=== PATIENT | female | born 1995 | race Caucasian/White ===

== ENCOUNTER → 2018-05-15 14:42 | Outpatient (CLI) | payer OTHER, SELFPAY ==
[2015-03-21 19:15] VITALS: BMI 16.8
[2018-05-15 15:51] LABS: Prolactin 14.7 ng/mL
[2018-05-18 12:48] LABS: HPV Reflexed? NOT INDICATED
== END ==
PROVIDERS: Visit Provider Obstetrics & Gynecology
DX: Z12.4 Encounter for screening for malignant neoplasm of cervix (principal); O92.6 Galactorrhea
CPT/HCPCS: 36415; 84146; 88175; G0145

== ENCOUNTER → 2019-11-05 13:18 | Outpatient (CLI) | payer OTHER, SELFPAY ==
[2015-03-21 19:15] VITALS: BMI 16.8
[2019-11-05 16:00] LABS: Progesterone Level 1.12 ng/mL (See Comment)
== END ==
LOC: LAB.FUTURE 13:23 → WOBLAB 12-04 11:45
PROVIDERS: Visit Provider Obstetrics & Gynecology
DX: N92.6 Irregular menstruation, unspecified (principal)
CPT/HCPCS: 36415; 84144

== ENCOUNTER → 2019-12-16 09:48 | Outpatient (CLI) | payer OTHER, SELFPAY ==
[2015-03-21 19:15] VITALS: BMI 16.8
[2019-12-16 10:55] LABS: Progesterone Level 5.18 ng/mL (See Comment)
== END ==
PROVIDERS: Visit Provider Obstetrics & Gynecology
DX: N97.0 Female infertility associated with anovulation (principal)
CPT/HCPCS: 36415; 84144

== ENCOUNTER → 2019-12-18 | Outpatient (CLI) | payer OTHER, SELFPAY ==
[2015-03-21 19:15] VITALS: BMI 16.8
[2019-12-18 17:40] LABS: Thyroid Stim Hormone (TSH) 2.61 uIU/mL (0.358-3.74)
== END | disposition home or self-care (01) ==
LOC: WOBLAB 15:57
PROVIDERS: Visit Provider Obstetrics & Gynecology
DX: N97.0 Female infertility associated with anovulation (principal); Z79.899 Other long term (current) drug therapy
CPT/HCPCS: 36415; 84443

== ENCOUNTER → 2020-01-17 09:21 | Outpatient (CLI) | payer OTHER, SELFPAY ==
[2015-03-21 19:15] VITALS: BMI 16.8
== END ==
PROVIDERS: Visit Provider Obstetrics & Gynecology
DX: N97.0 Female infertility associated with anovulation (principal); Z79.899 Other long term (current) drug therapy
CPT/HCPCS: 36415; 84144

== ENCOUNTER → 2020-02-18 13:35 | Outpatient (CLI) | payer OTHER, SELFPAY ==
[2015-03-21 19:15] VITALS: BMI 16.8
[2020-02-18 14:25] LABS: Progesterone Level 29.34 ng/mL (See Comment)
== END ==
PROVIDERS: Visit Provider Student in an Organized Health Care Education/Training Program
DX: N92.6 Irregular menstruation, unspecified (principal); N97.0 Female infertility associated with anovulation
CPT/HCPCS: 36415; 84144

== ENCOUNTER → 2020-03-16 14:16 | Outpatient (CLI) | payer OTHER, SELFPAY ==
[2015-03-21 19:15] VITALS: BMI 16.8
[2020-03-16 15:47] LABS: Absolute Lymphocyte Count 1.89 X10^3/uL (0.83-4.51); Absolute Neutrophil Count 15.6 X10^3/uL (2.0-7.7); Basophil# 0.06 X10^3/uL; Basophil% 0.3 % (0-1); Eosinophil# 0.06 X10^3/uL; Eosinophils% 0.3 % (0-5); Hematocrit 40.7 % (37-47); Hemoglobin 13.8 g/dL (12.0-15.0); Lymphocyte # 1.89 X10^3/ul (4.0); Lymphocyte % 10.2 % (19-41); Mean Corp Hgb Conc 33.9 g/dL (32-36); Mean Corpuscular Hgb 29.8 pg (27.0-32.0); Mean Corpuscular Volume 87.9 fL (81-99); Mean Platelet Vol. 9.8 fl (6.2-12.0); Monocyte# 0.77 X10^3/uL; Monocyte% 4.2 % (0-10); NRBC Flagged by Analyzer 0 % (0-5); Neutrophil # 15.62 X10^3/uL (2.7-7.7); Neutrophil % 84.5 % (47-70); Platelet Count 425 K/mm3 (150-450); RBC Distribution Width CV 12.7 % (11.6-14.6); RBC Distribution Width SD 41.2 fl (35.1-43.9); Red Blood Count 4.63 M/mm3 (4.2-5.4); White Blood Count 18.5 K/mm3 (4.4-11.0)
[2020-03-17 10:01] LABS: HIV - WCH Non-Reactive (Nonreactive); Hepatitis B Surface Antigen Non-Reactive (Nonreactive); Hepatitis C Antibody Non-Reactive (Nonreactive); Rubella IgG Reactive (Nonreactive)
[2020-03-19 03:06] LABS: Chlamydia By Nucleic Acid AMP Negative (Negative)
[2020-03-19 03:40] LABS: Prenatal RPR NONREACTIVE (NONREACTIVE)
[2020-03-19 12:31] LABS: Gonococcus By Nucleic Acid AMP Negative (Negative)
== END ==
PROVIDERS: Visit Provider Obstetrics & Gynecology
DX: Z34.82 Encounter for supervision of other normal pregnancy, second trimester (principal)
CPT/HCPCS: 36415; 85025; 86703; 86762; 86803; 87086; 87088; 87340; 87491; 87591

== ENCOUNTER → 2020-07-16 09:17 | Outpatient (CLI) | payer OTHER, SELFPAY ==
[2020-07-16 10:11] LABS: Bacteria 0 SEEN /hpf (None Seen); Mucous, Urine 0 SEEN /hpf (<or=2+); Red Blood Cells-Urine 0 SEEN /hpf (0-5); White Blood Cells 0 SEEN /hpf (0-5)
[2020-07-16 10:50] LABS: Hematocrit 34.4 % (37-47); Hemoglobin 11.3 g/dL (12.0-15.0); Mean Corp Hgb Conc 32.8 g/dL (32-36); Mean Corpuscular Hgb 29.9 pg (27.0-32.0); Mean Platelet Vol. 10.4 fl (6.2-12.0); Platelet Count 374 K/mm3 (150-450); RBC Distribution Width CV 13.8 % (11.6-14.6); RBC Distribution Width SD 45.6 fl (35.1-43.9); Red Blood Count 3.78 M/mm3 (4.2-5.4); White Blood Count 14.1 K/mm3 (4.4-11.0)
[2020-07-16 10:52] LABS: Color, Urine Yellow (Yellow); Glucose, Dipstick 250 mg/dl (Normal); Ketone-Dipstick Negative (Negative); Leukocyte Esterase-Dipstick Negative /ul (Negative); Nitrite-Dipstick Negative (Negative); Occult Blood-Urine 10 /ul (Negative); Protein-Dipstick 30 mg/dl (Negative); Urine Bilirubin Dipstick Negative (Negative); Urine Clarity Clear (Clear); Urine Urobilinogen Normal (Normal)
[2020-07-16 10:59] LABS: Squamous Epithelial Cells - UA 0-5 SEEN /hpf (5-10)
[2020-07-16 11:03] LABS: Protein, Urine (Random) 22.3 mg/dL (<11.9); Protein:Creat Ratio 423 mg/g CRE (0-200)
[2020-07-16 11:19] LABS: ALB/GLOB Ratio 0.7 RATIO (0.9-2.4); AST(SGOT) 16 U/L (15-37); Alanine Aminotransfer ALT/SGPT 31 U/L (13-56); Albumin, Serum 2.7 g/dL (3.2-5.0); Alkaline Phosphatase 111 U/L (45-117); Anion Gap 6 (5-15); BUN 4 mg/dL (7-18); BUN/Creat Ratio 6.4 RATIO (10-20); Calcium,Total 9.1 mg/dL (8.5-10.1); Chloride 108 mmol/L (98-107); Creatinine, Serum 0.62 mg/dL (0.55-1.02); EST Glomerular Filtration Rate 122 mL/min (>60); Est Glom Filt Rate - Afr Amer 148 mL/min (>60); Globulin 3.9 g/dL (2.2-4.2); Glucose 163 mg/dL (74-106); Glucose Challenge Gest 1H 50g 163 mg/dL (70-140); LDH 196 U/L (84-246); Potassium 3.3 mmol/L (3.5-5.1); Protein, Total 6.6 g/dL (6.4-8.2); Sodium Level 135 mmol/L (136-145)
== END ==
PROVIDERS: Visit Provider Obstetrics & Gynecology
DX: O30.022 Conjoined twin pregnancy, second trimester (principal); Z3A.00 Weeks of gestation of pregnancy not specified
CPT/HCPCS: 36415; 80053; 81001; 82570; 82950; 83615; 84156; 85027

== ENCOUNTER 2020-07-16 20:30 | Outpatient (CLI) | payer OTHER, SELFPAY ==
[2020-07-16 20:41] VITALS: BMI 29.3
[2020-07-16 20:46] VITALS: TEMP 37.6
[2020-07-16 20:47] VITALS: BP 138/85; PULSE 114; O2SAT 99
[2020-07-16 21:03] VITALS: BP 134/83; PULSE 114
[2020-07-16 21:10] VITALS: BP 139/86; PULSE 113
--- NOTE | 2020-07-16 22:16 | PCM.HP.OB ---
HPI - General HPI Narrative CINTHIA ANN, is a 25 F G1, P0 at 24 weeks and 2 days with Kike Twins with DIOMEDES: 11/04/2019 1 x 8-week ultrasound arrives with elevated blood pressures in the office. Patient asymptomatic. Denies headache, visual changes, chest pain, shortness of breath, nausea vomiting, right upper quadrant pain. Patient states good movement. complicated by di-di twins, Rh- Obstetric history: G1: Current Past medical history: Denies Past surgical history: ET tubes Medications: vitamin, aspirin Allergies: Lubricant Social history: Denies a history of smoking, alcohol use, drug use Family history: Denies a history of DVT or PE Review of systems: Besides above pertinent positives a full review of systems was performed and found to be negative Physical exam: General: Normal-appearing no acute distress HEENT: Normocephalic atraumatic no cervical lymphadenopathy Cardiac/respiratory: No use of accessory muscles, nonlabored breathing Abdomen: Soft, nontender, gravid Extremities: No peripheral edema normal peripheral pulses Psych: Normal affect normal demeanor nonpressured speech NST: Baby A 110s/ moderate variability/ positive accelerations/ negative decelerations baby B 140/moderate variability/positive accelerations/negative decelerations [place]: quiet PFSH Home Medications aspirin 81 mg PO DAILY 07/16/20 [History Last Taken 07/16/20 07:30] prenat.vits,nathan,sba-[id number] 1 tab PO DAILY 07/16/20 [History Last Taken 07/15/20 20:30] Allergy/AdvReac Type Severity Reaction Status Date / Time No Known Allergies Allergy Verified 03/21/15 19:19 Social History Smoking Status: Unknown if ever smoked Vital Signs Vital Signs Vital Signs: 07/16/20 20:46 07/16/20 20:47 07/16/20 21:03 Temperature 99.6 F H Temperature Source Temporal Pulse Rate 114 H 114 H Blood Pressure 138/85 H 134/83 H BP Systolic 138 134 BP Diastolic 85 83 Pulse Ox 99 07/16/20 21:10 Temperature Temperature Source Pulse Rate 113 H Blood Pressure 139/86 H BP Systolic 139 BP Diastolic 86 Pulse Ox Assessment & Plan Assessment/Plan (1) : Status: Acute Code(s): Z34.90 - Encounter for supervision of normal , unspecified, unspecified trimester Qualifiers: Weeks of gestation: 24 weeks Qualified Code(s): Z3A.24 - 24 weeks gestation of Plan: 25-year-old G1, P0 at 24 weeks and 2 days with Kike twins with elevated blood pressures in the office now with normal blood pressures here. Initial HELLP labs within normal limits besides elevated urine protein creatinine ratio. Will monitor blood pressures overnight and will begin obtaining a 24-hour urine protein starting in the morning(based on late hour to start collection now). We will repeat HELLP labs in the morning. Ultrasound today in office with reassuring findings, NST here reassuring for baby A and B. Repeat NST every shift.
[2020-07-17] VITALS (9 sets, daily range): BP systolic 102–146; BP diastolic 56–87; PULSE 76–118; TEMP 36.8–37.4; O2SAT 98–99
[2020-07-17 07:08] LABS: Absolute Lymphocyte Count 1.84 X10^3/uL (0.83-4.51); Absolute Neutrophil Count 11.4 X10^3/uL (2.0-7.7); Basophil# 0.04 X10^3/uL; Basophil% 0.3 % (0-1); Eosinophil# 0.11 X10^3/uL; Eosinophils% 0.8 % (0-5); Hematocrit 34.1 % (37-47); Hemoglobin 11.4 g/dL (12.0-15.0); Lymphocyte # 1.84 X10^3/ul (0.83-4.51); Mean Corp Hgb Conc 33.4 g/dL (32-36); Mean Corpuscular Volume 92.7 fL (81-99); Monocyte# 0.68 X10^3/uL; Monocyte% 4.8 % (0-10); NRBC Flagged by Analyzer 0 % (0-5); Neutrophil # 11.37 X10^3/uL (2.7-7.7); Neutrophil % 80.5 % (47-70); Platelet Count 332 K/mm3 (150-450); RBC Distribution Width CV 13.5 % (11.6-14.6); RBC Distribution Width SD 45.8 fl (35.1-43.9); Red Blood Count 3.68 M/mm3 (4.2-5.4); White Blood Count 14.1 K/mm3 (4.4-11.0)
[2020-07-17 07:36] LABS: ALB/GLOB Ratio 0.7 RATIO (0.9-2.4); AST(SGOT) 16 U/L (15-37); Alanine Aminotransfer ALT/SGPT 31 U/L (13-56); Albumin, Serum 2.8 g/dL (3.2-5.0); Alkaline Phosphatase 111 U/L (45-117); Anion Gap 7 (5-15); BUN 3 mg/dL (7-18); BUN/Creat Ratio 5.8 RATIO (10-20); Chloride 106 mmol/L (98-107); Creatinine, Serum 0.51 mg/dL (0.55-1.02); EST Glomerular Filtration Rate 153 mL/min (>60); Est Glom Filt Rate - Afr Amer 185 mL/min (>60); Estimated Creatinine Clearance 143.08 ml/min; Globulin 3.8 g/dL (2.2-4.2); Glucose 93 mg/dL (74-106); LDH 154 U/L (84-246); Potassium 3.7 mmol/L (3.5-5.1); Protein, Total 6.6 g/dL (6.4-8.2); Sodium Level 136 mmol/L (136-145)
--- NOTE | 2020-07-17 09:06 | PCM.DC ---
Discharge Instructions Outpatient Procedure Reason For Visit: HIGH BLOOD PRESSURE Diet Discharge Diet: No restrictions Activity Discharge Activity: Return to Normal Activity, May Drive and May Shower May resume sexual activity in: No Restrictions Weight Bearing Status: Weight bearing as tolerated Dressing / Incision Call your doctor if your incision/area has: Continuous Slow Oozing, Increased Pain/ Swelling and Foul Smelling Discharge Call your doctor if you observe: Fever of 101 or Higher, Shortness of breath and Chest pain Follow Up Care Please Follow Up With: Nino Hernandes MD When: 1-2 weeks Test Results: Test results from this visit will be discussed in further detail at your follow-up appointment, if applicable. Discharge Plan Admission Reason For Visit: HIGH BLOOD PRESSURE Attending Provider: Nino Hernandes Discharge Orders/Prescriptions Prescriptions: No Action aspirin 81 mg Tablet 81 mg PO DAILY RF: 0 prenat.vits,nathan,hju-fjvl-xljox Tablet 1 tab PO DAILY RF: 0 Disposition Discharge Orders: Discharge Patient (Routine); Ordered 07/17/20 Ordered By: Dr. Nino Hernandes
--- NOTE | 2020-07-17 09:07 | PN.OBGYN_ITS ---
Subjective Subjective: Patient with no overnight complaints. Denies headache, visual changes, chest pain, shortness of breath, nausea vomiting, right upper quadrant pain. Patient states good movement Objective Data Objective Data Vital Signs: Vital Signs Temp Pulse BP Pulse Ox 98.3 F 110 H 146/86 H 98 07/17/20 07:50 07/17/20 07:55 07/17/20 07:54 07/17/20 07:55 Weight: 171 lb 3.2 oz Body Mass Index (BMI) 29.3 Lab / Micro Data Result Diagrams: 07/17/20 06:55 07/17/20 06:55 Labs: Laboratory Results - last 24 hr 07/17/20 07/17/20 06:55 06:55 WBC 14.1 H RBC 3.68 L Hgb 11.4 L Hct 34.1 L MCV 92.7 MCH 31.0 MCHC 33.4 RDW Std Deviation 45.8 H RDW Coeff of Jocelyn 13.5 Plt Count 332 MPV 10.0 Immature Gran % (Auto) 0.600 Neut % (Auto) 80.5 H Lymph % (Auto) 13.0 L [place] % (Auto) 4.8 Eos % (Auto) 0.8 Baso % (Auto) 0.3 Absolute Neuts (auto) 11.4 H Absolute Lymphs (auto) 1.84 Nucleated RBC % 0 Sodium 136 Potassium 3.7 Chloride 106 Carbon Dioxide 23.0 Anion Gap 7 BUN 3 L Creatinine 0.51 L Estim Creat Clear Calc 143.08 Est GFR (MDRD) Af Amer 185 Est GFR (MDRD) Non-Af 153 BUN/Creatinine Ratio 5.8 L Glucose 93 Calcium 9.0 Total Bilirubin 0.30 AST 16 ALT 31 Alkaline Phosphatase 111 Lactate Dehydrogenase 154 Total Protein 6.6 Albumin 2.8 L Globulin 3.8 Albumin/Globulin Ratio 0.7 L Physical Exam Const alert, oriented x3 and no apparent distress HEENT normocephalic and moist oral mucous membranes Head and Scalp: atraumatic Extremity normal to inspection and no clubbing, cyanosis or edema Skin no rashes or lesions noted Psych mental status grossly normal, affect normal and speech normal Assessment & Plan Assessment/Plan (1) : Status: Acute Code(s): Z34.90 - Encounter for supervision of normal , unspecified, unspecified trimester Qualifiers: Weeks of gestation: 24 weeks Qualified Code(s): Z3A.24 - 24 weeks gestation of Plan: Patient at 24 weeks with di-di twins admitted overnight for blood pressure monitoring. Patient remains asymptomatic. Repeat help labs within normal limits. Overall blood pressures within normal limits, x1 mildly elevated blood pressure. Based on these findings all reassuring. Will collect 24-hour urine and discuss at next visit. Patient to take morning and evening at home blood pressures. Blood pressure parameters and signs/symptoms of preeclampsia given. to call if at home blood pressures elevated or becomes symptomatic. Okay to discharge home today with precautions.
[2020-07-18 09:46] LABS: 24HR. UA Prot. Total Volume 2525 mL; Urine Protein (24 Hour) 14.1 mg/dL (<11.9)
== END 2020-07-17 10:10 | disposition home or self-care (01) ==
LOC: WPOUT 20:35 → WP 20:36
PROVIDERS: Visit Provider Obstetrics & Gynecology
DX: O26.892 Other specified pregnancy related conditions, second trimester (principal); R03.0 Elevated blood-pressure reading, without diagnosis of hypertension; Z3A.24 24 weeks gestation of pregnancy
CPT/HCPCS: 36415; 59025; 59050; 80053; 83615; 84156; 85025; 99218; G0378

== ENCOUNTER → 2020-07-21 06:56 | Outpatient (CLI) | payer OTHER, SELFPAY ==
[2020-07-16 20:41] VITALS: BMI 29.3
[2020-07-21 07:35] LABS: Glucose GTT-Gestation. Fasting 92 mg/dL (<105)
[2020-07-21 08:40] LABS: Glucose GTT-Gestational 1 Hr 257 mg/dL (<190)
[2020-07-21 09:30] LABS: Glucose GTT-Gestational 2 Hr 241 mg/dL (<165)
[2020-07-21 11:49] LABS: Glucose GTT-Gestational 3 Hr 80 L (<145)
== END ==
PROVIDERS: PCP Family Medicine; Referring Provider Obstetrics & Gynecology; Visit Provider Obstetrics & Gynecology
DX: O24.912 Unspecified diabetes mellitus in pregnancy, second trimester (principal); Z3A.00 Weeks of gestation of pregnancy not specified
CPT/HCPCS: 36415; 82951; 82952

== ENCOUNTER → 2020-08-14 13:27 | Outpatient (CLI) | payer OTHER, SELFPAY ==
[2020-07-16 20:41] VITALS: BMI 29.3
== END ==
PROVIDERS: PCP Family Medicine; Visit Provider Obstetrics & Gynecology
DX: Z34.83 Encounter for supervision of other normal pregnancy, third trimester (principal)
CPT/HCPCS: 36415; 86850

== ENCOUNTER 2020-09-08 08:30 | Outpatient (CLI) | payer OTHER, SELFPAY ==
[2020-09-08] VITALS (7 sets, daily range): BP systolic 137–151; BP diastolic 79–90; PULSE 97–122; TEMP 37–37.6; O2SAT 92–97; BMI 29.7
[2020-09-08] MEDS: Lactated Ringers 500 ML IV.SOLN. IV (10:00)
[2020-09-08 10:49] LABS: Hematocrit 35.5 % (37-47); Hemoglobin 11.8 g/dL (12.0-15.0); Mean Corp Hgb Conc 33.2 g/dL (32-36); Mean Corpuscular Hgb 29.4 pg (27.0-32.0); Mean Corpuscular Volume 88.3 fL (81-99); Mean Platelet Vol. 11.3 fl (6.2-12.0); Platelet Count 317 K/mm3 (150-450); RBC Distribution Width SD 42.1 fl (35.1-43.9); Red Blood Count 4.02 M/mm3 (4.2-5.4); White Blood Count 12.5 K/mm3 (4.4-11.0)
[2020-09-08] MEDS: Betamethasone/Betamethasone 30 MG/5 ML Vial 12 MG IM (10:58)
[2020-09-08] MEDS: Lactated Ringers 1,000 ML 125 ML IV ×2 (11:00→19:27)
[2020-09-08 11:25] LABS: ALB/GLOB Ratio 0.6 RATIO (0.9-2.4); AST(SGOT) 22 U/L (15-37); Alanine Aminotransfer ALT/SGPT 26 U/L (13-56); Albumin, Serum 2.4 g/dL (3.2-5.0); Alkaline Phosphatase 200 U/L (45-117); Anion Gap 8 (5-15); BUN 6 mg/dL (7-18); BUN/Creat Ratio 8.7 RATIO (10-20); Calcium,Total 8.8 mg/dL (8.5-10.1); Chloride 106 mmol/L (98-107); Creatinine, Serum 0.69 mg/dL (0.55-1.02); EST Glomerular Filtration Rate 109 mL/min (>60); Est Glom Filt Rate - Afr Amer 132 mL/min (>60); Estimated Creatinine Clearance 105.76 ml/min; Glucose 87 mg/dL (74-106); LDH 206 U/L (84-246); Potassium 4.2 mmol/L (3.5-5.1); Protein, Total 6.4 g/dL (6.4-8.2); Sodium Level 136 mmol/L (136-145)
[2020-09-08] MEDS: Terbutaline 1 MG/ML Vial 0.25 MG SC ×2 (11:45→22:18)
[2020-09-08 11:55] LABS: Group B Strep DNA By PCR Negative (Negative); Internal Control PASS; Probe Check PASS; Specimen Processing Control PASS
--- NOTE | 2020-09-08 12:48 | PCM.HP.BLA ---
History and Physical Date of Admission: 09/08/20 Chief complaint: Contractions History of present illness: 25-year-old G1, P0 at 32 weeks and 0 days with di-ditwins with DIOMEDES: 11/03/2020 by LMP confirmed with 8-week ultrasound arrives with contractions since this morning. Denies headache, visual changes, chest pain, shortness of breath, nausea vomiting, right upper quadrant pain. Patient states good movement x2. This is complicated by di-di twins, JOSH without severe features on no medications, GDM A1, Rh-, baby A echogenic bowel noted on initial ultrasound but not seen by MFM Obstetric history: G1: Current Past medical history: JOSH without severe features, GDM A1 Medications: vitamin, aspirin Past surgical history: Tonsils and adenoids Allergies: Lubrication Social history: Denies smoking, alcohol, drug use Family history: Denies history DVT or PE Review of systems: Besides above pertinent positives a full review of systems was performed and found to be negative Physical exam: Blood pressure 146/88 pulse 102 pulse ox 90% on room air General: Normal-appearing no acute distress HEENT: Normocephalic atraumatic no cervical of adenopathy Cardiac/respiratory: No use of accessory muscles, nonlabored breathing Abdomen: Soft, nontender, gravid Pelvic exam: Cervical exam 350/-3 Bedside ultrasound: Baby A vertex baby B breech Extremities: No peripheral edema normal peripheral pulses Psych: Normal affect normal demeanor nonpressured speech Labs: White blood cell count 12.5, hemoglobin 11.8, hematocrit 35.5% platelets 317. Sodium 136 potassium 4.2 creatinine 0.69. AST 22 ALT 26. LDH 206. Assessment plan: 25-year-old G1, P0 at 32 weeks 0 days with di-di twins with labor. Given Celestone at 10:58 PM, given terbutaline at 11:45 AM. To start penicillin for GBS prophylaxis, rapid GBS negative but with labor still needs penicillin prophylaxis. Educated patient on labor/ delivery including but not limited to risks of intubation, need for tertiary NICU, and loss. Patient stated understanding. Educated on Celestone and terbutaline. We will continue to monitor. JOSH without severe features on no medications blood pressure stable labs stable we will continue to monitor.
--- NOTE | 2020-09-08 22:16 | PCM.PN.OB ---
Subjective Subjective Patient feeling contractions more intensely every few minutes. Otherwise asymptomatic Objective Data Objective Data Vital Signs: Vital Signs Temp Pulse BP Pulse Ox 99.6 F H 110 H 139/79 H 97 09/08/20 21:54 09/08/20 21:54 09/08/20 21:54 09/08/20 21:55 Weight: 173 lb Body Mass Index (BMI) 29.7 Intake & Output: Intake and Output for Last 24 Hours 09/06/20 09/07/20 09/08/20 23:59 23:59 23:59 Intake Total 1150.00 / 1150.00 Balance 1150.00 / 1150.00 Lab / Micro Data Result Diagrams: 09/08/20 10:05 09/08/20 10:05 Labs: Laboratory Results - last 24 hr 09/08/20 09/08/20 09/08/20 10:05 10:05 10:05 WBC 12.5 H RBC 4.02 L Hgb 11.8 L Hct 35.5 L MCV 88.3 MCH 29.4 MCHC 33.2 RDW Std Deviation 42.1 RDW Coeff of Jocelyn 13.0 Plt Count 317 MPV 11.3 Sodium 136 Potassium 4.2 Chloride 106 Carbon Dioxide 22.0 Anion Gap 8 BUN 6 L Creatinine 0.69 Estim Creat Clear Calc 105.76 Est GFR (MDRD) Af Amer 132 Est GFR (MDRD) Non-Af 109 BUN/Creatinine Ratio 8.7 L Glucose 87 Calcium 8.8 Total Bilirubin 0.20 AST 22 ALT 26 Alkaline Phosphatase 200 H Lactate Dehydrogenase 206 Total Protein 6.4 Albumin 2.4 L Globulin 4.0 Albumin/Globulin Ratio 0.6 L Group B Strep DNA Specimen Comment Blood Type A NEGATIVE Antibody Screen POSITIVE H Antibody Identification ANTI-D 09/08/20 10:20 WBC RBC Hgb Hct MCV MCH MCHC RDW Std Deviation RDW Coeff of Jocelyn Plt Count MPV Sodium Potassium Chloride Carbon Dioxide Anion Gap BUN Creatinine Estim Creat Clear Calc Est GFR (MDRD) Af Amer Est GFR (MDRD) Non-Af BUN/Creatinine Ratio Glucose Calcium Total Bilirubin AST ALT Alkaline Phosphatase Lactate Dehydrogenase Total Protein Albumin Globulin Albumin/Globulin Ratio Group B Strep DNA Negative Specimen Comment Not Reportable Blood Type Antibody Screen Antibody Identification Physical Exam Const alert, oriented x3, average body habitus, healthy appearing and well nourished HEENT normocephalic and moist oral mucous membranes Head and Scalp: atraumatic Neck full ROM Resp normal respiratory effort, no retractions and no use of accessory muscles Extremity normal to inspection, full ROM and no clubbing, cyanosis or edema Skin no rashes or lesions noted Psych mental status grossly normal, affect normal and speech normal NST FHR Rate Baby A Baseline: 130 Variability:: Moderate Accelerations:: 15 x 15 Decelerations:: None FHR Category:: Category I Uterine Activity:: every 2 to 5 minutes FHR Rate Baby B Baseline: 120 Variability:: Moderate Accelerations:: 15 x 15 Decelerations:: None FHR Category:: Category I Uterine Activity:: every 2 to 5 minutes Assessment & Plan (1) : QUALIFIERS: Weeks of gestation: 24 weeks Qualified Code(s): Z3A.24 - 24 weeks gestation of PLAN: Called by nursing the patient was feeling increased frequency and pain with contractions. Cervical exam noted to be 4 cm. Discussed case with mechanical engineering advisor who believed transport is the best pediatric option for both babies being 32 weeks and likely needing transport to a tertiary center. She discussed this with the patient who agreed. I personally saw and examined the patient who noted to be feeling contractions every 2 to 5 minutes. We discussed transport options risk benefits alternatives, and based on maternal and / needs patient to be transported. Spoke with Dr. Micaela pandey [facility] who accepted transport. Called labor and delivery to update/inform of patient demographics and transport plan. Transport squad was called. We will continue penicillin, to give terbutaline now for transport.
== END 2020-09-08 22:45 | disposition short-term general hospital (02) ==
LOC: WPOUT 08:34 → WP 08:35
PROVIDERS: Obstetrics & Gynecology; PCP Family Medicine; Visit Provider Obstetrics & Gynecology
DX: O30.043 Twin pregnancy, dichorionic/diamniotic, third trimester (principal); O99.820 Streptococcus B carrier state complicating pregnancy; Z3A.32 32 weeks gestation of pregnancy
CPT/HCPCS: 96360; 96361 ×10; 59025; 59050; 80053; 83615; 85027; 86850; 86870; 86900; 86901; 87081; 87653; 96372; 99218; J7120; G0378; J0702

== ENCOUNTER → 2020-10-28 09:44 | Outpatient (CLI) | payer OTHER, SELFPAY ==
[2020-09-08 08:57] VITALS: BMI 29.7
[2020-10-28 12:30] LABS: Glucose 2 Hour Postprandial 88 mg/dL (<140)
== END ==
PROVIDERS: PCP Family Medicine; Visit Provider Obstetrics & Gynecology
DX: O24.419 Gestational diabetes mellitus in pregnancy, unspecified control (principal); Z3A.00 Weeks of gestation of pregnancy not specified
CPT/HCPCS: 36415; 82950

== ENCOUNTER → 2022-10-13 | Outpatient (CLI) | payer BC, SELFPAY ==
[2022-10-13 11:30] LABS: Absolute Lymphocyte Count 1.57 X10^3/uL (0.83-4.51); Absolute Neutrophil Count 13.7 X10^3/uL (2.0-7.7); Basophil# 0.04 X10^3/uL; Basophil% 0.2 % (0-1); Eosinophil# 0.03 X10^3/uL; Eosinophils% 0.2 % (0-5); Hematocrit 40.9 % (37-47); Hemoglobin 13.7 g/dL (12.0-15.0); Lymphocyte # 1.57 X10^3/ul (0.83-4.51); Lymphocyte % 9.8 % (19-41); Mean Corp Hgb Conc 33.5 g/dL (32-36); Mean Corpuscular Hgb 29.7 pg (27.0-32.0); Mean Corpuscular Volume 88.5 fL (81-99); Mean Platelet Vol. 9.5 fl (6.2-12.0); Monocyte# 0.63 X10^3/uL; Monocyte% 3.9 % (0-10); NRBC Flagged by Analyzer 0 % (0-5); Neutrophil # 13.71 X10^3/uL (2.7-7.7); Neutrophil % 85.2 % (47-70); Platelet Count 377 K/mm3 (150-450); RBC Distribution Width CV 12.6 % (11.6-14.6); RBC Distribution Width SD 40.8 fl (35.1-43.9); Red Blood Count 4.62 M/mm3 (4.2-5.4); White Blood Count 16.1 K/mm3 (4.4-11.0)
[2022-10-13 11:45] LABS: Protein, Urine (Random) < 6.0 mg/dL (<11.9); Protein:Creat Ratio 107 mg/g CRE (0-200)
[2022-10-13 12:03] LABS: AST(SGOT) 11 U/L (15-37); Alanine Aminotransfer ALT/SGPT 41 U/L (13-56); Albumin, Serum 3.8 g/dL (3.2-5.0); Alkaline Phosphatase 62 U/L (45-117); Anion Gap 7 (5-15); BUN 6 mg/dL (7-18); BUN/Creat Ratio 9.7 RATIO (10-20); Calcium,Total 9.1 mg/dL (8.5-10.1); Chloride 106 mmol/L (98-107); Creatinine, Serum 0.62 mg/dL (0.55-1.02); EST Glomerular Filtration Rate 121 mL/min (>60); Est Glom Filt Rate - Afr Amer 147 mL/min (>60); Globulin 3.7 g/dL (2.2-4.2); Glucose 85 mg/dL (74-106); LDH 131 U/L (84-246); Potassium 3.6 mmol/L (3.5-5.1); Protein, Total 7.5 g/dL (6.4-8.2); Sodium Level 136 mmol/L (136-145)
[2022-10-13 12:36] LABS: HIV - WCH Non-Reactive (Nonreactive); Hepatitis B Surface Antigen Non-Reactive (Nonreactive); Hepatitis C Antibody Non-Reactive (Nonreactive); Rubella IgG Reactive (Nonreactive); Syphilis Antibodies Non-reactive
[2022-10-14 05:07] LABS: V-Zoster IgG (Immunity) 1094 index (Immune >165)
[2022-10-17 16:37] LABS: HPV Reflexed? NOT INDICATED
== END | disposition home or self-care (01) ==
PROVIDERS: Referring Provider Obstetrics & Gynecology; Visit Provider Obstetrics & Gynecology
DX: Z34.81 Encounter for supervision of other normal pregnancy, first trimester (principal)
CPT/HCPCS: 36415; 80053; 82570; 83615; 84156; 85025; 86703; 86762; 86780; 86787; 86803; 86850; 86900; 86901; 87086; 87088; 87340; 88175; G0145

== ENCOUNTER 2023-05-05 05:00 | Inpatient (IN) | payer BC, SELFPAY ==
--- NOTE | 2023-04-26 16:32 | HP.PCM_ITS ---
History and Physical Date of Admission: 05/05/23 HPI: The patient is a 27 year old female presenting for pre-operative visit. She is scheduled for , for previous t icnision on 05/05/23. Procedure discussed along with risks, benefits and complications. Other alternatives discussed for management. Consent form signed? Yes. ? ? PAST MEDICAL HISTORY PAST MEDICAL HISTORY Diagnosis Date ? Fibroid, uterine 2020 ? Gestational diabetes ? ? History of gestational hypertension ? ? History of gestational hypertension 11/22/2022 ? Hypertension ? ? Infertility, female ? ? Placental abruption ? ? anemia ? ? ? PAST SURGICAL HISTORY PAST SURGICAL HISTORY Procedure Laterality Date ? DELIVERY ONLY ? 09/09/2020 ? T-incision - twins ? MYRINGOTOMY ASPIR&/EUSTACHIAN TUBE NFLTJ ? CURRENT MEDICATIONS Current Outpatient Medications Medication Sig Dispense Refill ? blood sugar diagnostic test strip Use as directed to check glucose levels up to seven times daily. 200 Strip 8 ? Lancets lancets Use as directed to check glucose levels up to seven times daily. 200 Each 8 ? vit 75/iron/folic/om3 (ONE A DAY WOMEN'S DHA ORAL) Take by mouth. ? ? ? aspirin, enteric coated (ASPIRIN, ENTERIC COATED) 81 mg EC tablet Take 1 tablet by mouth every afternoon. ? ? ? No current facility-administered medications for this visit. ? ? ALLERGIES: Patient has no known allergies. ? PERSONAL HISTORY: SOCIAL HISTORY Social History ? Tobacco Use ? Smoking status: Never ? Smokeless tobacco: Never Vaping Use ? Vaping Use: Never used Substance Use Topics ? Alcohol use: Not Currently ? ? Comment: occasonally ? Drug use: No ? FAMILY HISTORY: FAMILY HISTORY FAMILY HISTORY Problem Relation Age of Onset ? No Known Problems Mother ? ? Hypertension Father ? ? No Known Problems Sister ? ? Emphysema Maternal Grandmother ? ? Breast Cancer Maternal Grandmother ? ? Heart Maternal Grandmother ? ? COPD Maternal Grandfather ? ? Emphysema Maternal Grandfather ? ? Diabetes Paternal Grandmother ? ? Hypertension Paternal Grandmother ? ? Breast Cancer Paternal Grandmother ? ? Kidney Disease Paternal Grandmother ? ? No Known Problems Paternal Grandfather ? ? No Known Problems Son ? ? No Known Problems Daughter ? ? ? REVIEW OF SYMPTOMS: GENERAL: denies fevers or chills ENDOCRINOLOGY: has not been on steroids Cardiology : denies palpitations or chest pain Respiratory: denies SOB or cough Hematology: denies history of prolonged bleeding or easy bruising or VTE Allergy: Denies history of personal or family history of allergy to anesthesia ? PHYSICAL EXAMINATION: ? VITALS: Blood pressure 120/64, pulse 82, height 5' 3.25 (1.607 m), weight 155 lb (70.3 kg), last menstrual period 08/16/2022. ? GENERAL: The patient is well nourished, well hydrated in no acute distress. , The patient is oriented to time, place, and person. NECK: Supple. No lynphadenopathy, normal thyroid, no thyromegaly. LUNGS: Clear to auscultation bilaterally. no wheezes, rhonchi or rales HEART: Regular rate and rhythm, Normal heart sounds, and No murmurs or gallops GENITALIA: Normal external genitalia, Urethral meatus normal, Bladder nontender, normal vagina and normal vaginal tone, normal cervix, normal uterus, size and consistency, normal adnexa without masses or tenderness, and perineum WNL ? IMPRESSION: Estimated Date of Delivery: 05/30/23 ? PLAN: The risks/benefits/alternatives and personal involved for the planned c- section were reviewed with the patient. Her questions were answered to her satisfaction and she desires to proceed. Consent was signed. I reviewed with her postop instructions and expectations. ? ? I have reviewed and updated past medical and surgical history, medications and allergies Assessment & Plan Assessment/Plan (1) History of classical section: (2) Supervision of other high risk pregnancies, third trimester: (3) 36 weeks gestation of :
[2023-05-05] VITALS (37 sets, daily range): BP systolic 95–144; BP diastolic 65–105; PULSE 74–107; RESP 16–29; TEMP 36.2–37.1; O2SAT 92–100; BMI 26.7
[2023-05-05] MEDS: Lactated Ringers 1,000 ML 999 ML IV (05:35)
[2023-05-05 05:43] LABS: Absolute Lymphocyte Count 1.93 X10^3/uL (0.83-4.51); Absolute Neutrophil Count 9.7 X10^3/uL (2.0-7.7); Basophil# 0.03 X10^3/uL; Basophil% 0.2 % (0-1); Eosinophil# 0.07 X10^3/uL; Eosinophils% 0.6 % (0-5); Hemoglobin 11.8 g/dL (12.0-15.0); Lymphocyte # 1.93 X10^3/ul (0.83-4.51); Lymphocyte % 15.4 % (19-41); Mean Corp Hgb Conc 33.7 g/dL (32-36); Mean Corpuscular Hgb 29.4 pg (27.0-32.0); Mean Corpuscular Volume 87.3 fL (81-99); Monocyte# 0.74 X10^3/uL; Monocyte% 5.9 % (0-10); NRBC Flagged by Analyzer 0 % (0-5); Neutrophil # 9.67 X10^3/uL (2.7-7.7); Neutrophil % 77.2 % (47-70); Platelet Count 328 K/mm3 (150-450); RBC Distribution Width CV 13.7 % (11.6-14.6); RBC Distribution Width SD 43.4 fl (35.1-43.9); Red Blood Count 4.01 M/mm3 (4.2-5.4); White Blood Count 12.5 K/mm3 (4.4-11.0)
[2023-05-05] MEDS: Lactated Ringers 1,000 ML 150 ML IV (06:33)
[2023-05-05 06:37] LABS: Syphilis Antibodies Non-reactive
[2023-05-05 06:43] LABS: Bedside Glucose 85 mg/dL (74-106)
[2023-05-05] MEDS: Acetaminophen 500 MG Tablet 1000 MG PO ×3 (07:08→18:33)
[2023-05-05] MEDS: Sodium Citrate/Citric Acid 30 ML UDC PO (07:08)
[2023-05-05] MEDS: Cefazolin 2 GM in 0.9% Normal Saline (100mL Bag) 100 ML IV (07:34)
--- NOTE | 2023-05-05 07:43 | OP.PCM_ITS ---
Assessment & Plan (1) 36 weeks gestation of : (2) Supervision of other high risk pregnancies, third trimester: (3) History of classical section: Maternal Data Information Final DIOMEDES: 05/30/23 Gestational age: 36 3/7 Details Operative Information Date of Procedure: 05/05/23 Pre-Operative Diagnosis: previous T-incision, 36 weeks Post-Operative Diagnosis: same Indications for : Repeat Elective Classification: Scheduled Procedure Type: low transverse development engineer #1: Duong Brandt Type of Anesthesia: Spinal Anesthesiologist: Eleazar Sunshine Antibiotic Given: Ancef 2 grams IV x1 Drain: Noble to straight drain
--- NOTE | 2023-05-05 08:27 | OP.PCM_ITS ---
Assessment & Plan (1) 36 weeks gestation of : (2) Supervision of other high risk pregnancies, third trimester: (3) History of classical section: Maternal Data Information Final DIOMEDES: 05/30/23 Gestational age: 36 3/7 Details Operative Information Date of Procedure: 05/05/23 Pre-Operative Diagnosis: previous t incision c/s Post-Operative Diagnosis: same Indications for : Repeat Elective Classification: Scheduled Procedure Type: low transverse executive sales assistant #1: Duong Brandt Type of Anesthesia: Spinal Anesthesiologist: Eleazar Sunshine Special Medications: duramorph Antibiotic Given: Ancef 2 grams IV x1 Drain: Noble to straight drain Estimated Blood Loss: 600 Fluids Replaced: 1000 Procedure Start Time: 07:58 Time of Delivery: 08:02 Findings Description of Procedure: The patient was taken to the operating room. She was prepped and draped in the dorsal supine position with a leftward tilt. A Pfannenstiel skin incision was made approximately 2 cm above the symphysis pubis and carried through to underlying layer fascia with the scalpel. The fascia was incised incised in the midline and extended laterally with the Ford scissors. The fascia was dissected off the rectus muscles with blunt and sharp dissection. The rectus muscles were in the midline and the peritoneum was entered bluntly. The peritoneal incision was stretched and the bladder blade was placed. The uterine incision was made in a low transverse fashion with the scalpel and extended superiorly and inferiorly with blunt dissection. The amniotic membranes were ruptured bluntly and clear amniotic fluid returned. The 's head was brought to the incision in the flexed position and delivered without difficulty. The remainder of the was delivered with gentle traction and fundal pressure in the standard fashion. The mouth and nares were bulb suctioned. The cord was clamped and cut as the was stimulated. Cord clamping was delayed. The infant was handed off to the waiting nursing staff. The placenta was delivered with fundal massage and gentle traction in the standard fashion. The uterus was cleared of all clots and debris and left in situ. The cervix was dilated with a ring forcep. The uterine incision was closed with #1 Vicryl in a running locked fashion. The incision was examined and was found to be hemostatic. The rectus muscles were examined and any bleeding was Bovie cauterized. The parietal peritoneum and rectus muscles were closed en bloc with an 0 Vicryl running suture. The surgical teams outer gloves were then changed. The rectus fascia was examined and any bleeding was Bovie cauterized and the rectus fascia was closed with 1 Vicryl suture in a running standard fashion. The subcutaneous tissue was examining and any bleeding was Bovie cauterized. The subcutaneous tissue was reapproximated with 3-0 Vicryl suture. The skin was closed in a subcuticular fashion by the CUSTOMER SUCCESS ASSOCIATE with me present in the labor and delivery suite. I performed the remainder of the procedure with assistance. All sponge, lap, and needle counts were correct. The patient was taken to her room for recovery in a stable condition. Presentation: Positive for Vertex Amniotic Membrane Rupture Type: Artificial Amniotic Fluid Description: Clear Placental Delivery Description: Expressed Placenta Disposition: [facility] Cord Vessel Description: 3 Vessels Cord Entanglement: Around neck x 1, loose Nuchal Cord Compression: Without compression A Gender: Male (1 minute): 8 (5 minute): 9 Delayed Cord Clamping: Yes Complications Complications: none Admit VTE Documentation VTE Present on Admission: No VTE Mechan Device Prophylaxis: SCD's VTE Pharm Prophylaxis Ordered: No Reason Prophylaxis Not Ordered: Procedure Not Indicated
[2023-05-05] MEDS: Oxytocin 15 Units/NS 250ml 15 UNITS/250 ML IV.SOLN 83 UNITS IV (08:50)
[2023-05-05] MEDS: Ketorolac 30 MG/ML Syringe IV ×3 (09:26→20:48)
[2023-05-05 10:36] LABS: Bedside Glucose 95 mg/dL (74-106)
[2023-05-05] MEDS: Lactated Ringers 1,000 ML 100 ML IV (12:01)
[2023-05-05] MEDS: Senna/Docusate Sodium 1 Tablet PO (13:08)
[2023-05-05] MEDS: 0.9% Saline Lock 10 ML Syringe IV ×3 (15:04→20:48)
[2023-05-05] MEDS: Rho(D) Immune Globulin 300 MCG (1500 Unit) Syringe IV (15:07)
[2023-05-06] MEDS: Acetaminophen 500 MG Tablet 1000 MG PO ×3 (01:01→16:19)
[2023-05-06 01:04] VITALS: BP 131/89; PULSE 78; RESP 16; TEMP 36.8; O2SAT 99
[2023-05-06] MEDS: Ketorolac 30 MG/ML Syringe IV (03:28)
[2023-05-06] MEDS: 0.9% Saline Lock 10 ML Syringe IV (03:28)
[2023-05-06 03:36] VITALS: BP 114/65; PULSE 70; RESP 16; TEMP 36.7; O2SAT 99
[2023-05-06 05:55] LABS: Hematocrit 28.5 % (37-47); Hemoglobin 9.4 g/dL (12.0-15.0); Mean Platelet Vol. 9.9 fl (6.2-12.0); Platelet Count 195 K/mm3 (150-450); RBC Distribution Width SD 44.6 fl (35.1-43.9); Red Blood Count 3.24 M/mm3 (4.2-5.4); White Blood Count 14.2 K/mm3 (4.4-11.0)
[2023-05-06 06:05] LABS: Bedside Glucose 78 mg/dL (74-106)
--- NOTE | 2023-05-06 08:15 | PCM.PROGNOTE ---
Subjective Subjective patient seen at bedside, doing well. Patient reports good pain control. lochia mild. Objective Data Objective Data Vital Signs: Vital Signs Temp Pulse Resp BP Pulse Ox O2 Del Method 98.0 F 70 16 114/65 99 Room Air 05/06/23 03:36 05/06/23 03:36 05/06/23 03:36 05/06/23 03:36 05/06/23 03:36 05/06/23 03:36 Oxygen Delivery Method Room Air Weight: 70.76 kg Body Mass Index (BMI) 26.7 Intake & Output: Intake and Output for Last 24 Hours 05/04/23 05/05/23 05/06/23 23:59 23:59 23:59 Intake Total 4647.37 / 4647.37 Output Total 2250 / 2250 Balance 2397.37 / 2397.37 Lab / Micro Data 05/06/23 05:45 Labs: Laboratory Results - last 24 hr 05/05/23 09:51: POC Glucose 95 05/05/23 11:30: Screen NEGATIVE, Baby's Blood Type A POSITIVE, Baby's MADAN NEGATIVE 05/06/23 05:39: POC Glucose 78 05/06/23 05:45: WBC 14.2 H, RBC 3.24 L, Hgb 9.4 L, Hct 28.5 L, MCV 88.0, MCH 29.0, MCHC 33.0, RDW Std Deviation 44.6 H, RDW Coeff of Jocelyn 14.0, Plt Count 195, MPV 9.9 Physical Exam Narrative fundus firm. dressing dry and intact. Const alert and oriented x3 General Appearance: cooperative HEENT normocephalic Neck General: normal visual inspection GI soft to palpation and non-distended GI Narrative: Fundus firm Extremity normal to inspection and no calf tenderness Skin no rashes or lesions noted Neuro oriented x3 and CN's II-XII intact bilaterally Psych mental status grossly normal Assessment & Plan Assessment/Plan (1) Delivery by section: (2) Supervision of other high risk pregnancies, third trimester: (3) History of classical section: (4) 36 weeks gestation of : PLAN: POD# 1 , Doing well Routine care pain mgmt monitor VS ambulation dc home
--- NOTE | 2023-05-06 08:16 | DCINST_ITS ---
Discharge Instructions Diet Discharge Diet: No restrictions Activity May resume sexual activity in: 6-8 weeks Lifting Restrictions: 25 Dressing / Incision Call your doctor if your incision/area has: Continuous Slow Oozing, Sudden Increased Bleeding, Increased Pain/ Swelling, Increased Redness, Foul Smelling Discharge and Swelling at the incision site Call your doctor if you observe: Fever of 101 or Higher, Inability to urinate, Using more than 1 pad per hour and Uncontrolled pain Additional Dressing/Incision Instructions:: remove dressing at 7 days post op- if it becomes saturated prior to that time you may remove it. Let soap and water run over incision sites and dab dry. keep incision clean and dry. Follow Up Care Please Follow Up With: Fina Maravilla MD When: 1-2 weeks post of incision check and again at 6 weeks post . [phone] Test Results: Test results from this visit will be discussed in further detail at your follow- up appointment, if applicable. Discharge Plan Admission Admit Date/Time: 05/05/23 05:00 Attending Provider: Evelyn Looney Primary Care Provider: Care Physician,Opal Primary Discharge Orders/Prescriptions Prescriptions: New acetaminophen 500 mg Tablet 1,000 mg PO Q6H Qty: 0 0RF sennosides-docusate sodium [Stool Softener-Stimulant Laxat] 8.6-50 mg Tablet 1 - 2 tab PO DAILY Qty: 0 0RF ibuprofen 600 mg Tablet 600 mg PO Q6H Qty: 0 0RF simethicone 80 mg Tablet,Chewable 80 mg PO PCHS PRN (Reason: Indigestion/stomach pain) Qty: 0 0RF Continued prenat.vits,nathan,[id number] Tablet 1 tab PO DAILY Discontinued aspirin 81 mg Tablet 81 mg PO DAILY Referrals / Follow Up: Care Physician,No Primary [Primary Care Provider] - Disposition Disposition (needs filled in before D/C Order can be placed): Home, Self Care
--- NOTE | 2023-05-06 08:23 | PCM.DC.BLA ---
Discharge Summary Date of Admission: 05/05/23 Date of Discharge: 05/06/23 Summary: Patient mended to [facility] 05/05/2023 for a scheduled repeat section. Had an uncomplicated postoperative course and was discharged home on postoperative day #1 in stable condition. Meaningful Use Info Meaningful Use Diagnoses (Choose all that apply): None applicable Discharge Plan Admission Admit Date/Time: 05/05/23 05:00 Attending Provider: Evelyn Looney Primary Care Provider: Care Physician,Opal Primary Discharge Orders/Prescriptions Prescriptions: New acetaminophen 500 mg Tablet 1,000 mg PO Q6H Qty: 0 0RF sennosides-docusate sodium [Stool Softener-Stimulant Laxat] 8.6-50 mg Tablet 1 - 2 tab PO DAILY Qty: 0 0RF ibuprofen 600 mg Tablet 600 mg PO Q6H Qty: 0 0RF simethicone 80 mg Tablet,Chewable 80 mg PO PCHS PRN (Reason: Indigestion/stomach pain) Qty: 0 0RF Continued prenat.vits,nathan,[id number] Tablet 1 tab PO DAILY Discontinued aspirin 81 mg Tablet 81 mg PO DAILY Referrals / Follow Up: Care Physician,No Primary [Primary Care Provider] - Disposition Disposition (needs filled in before D/C Order can be placed): Home, Self Care
[2023-05-06 08:35] VITALS: BP 129/85; PULSE 84; RESP 16; TEMP 36.7; O2SAT 97
[2023-05-06] MEDS: Senna/Docusate Sodium 1 Tablet PO (11:39)
[2023-05-06] MEDS: Ibuprofen 600 MG Tablet PO ×2 (11:39→17:37)
[2023-05-06 14:40] VITALS: BP 138/79; PULSE 93; RESP 16; O2SAT 97
[2023-05-06 18:36] VITALS: BP 136/87; PULSE 104; RESP 16; O2SAT 98
== END 2023-05-06 19:00 | disposition home or self-care (01) | DRG 786 ==
PROVIDERS: Admitting Provider Obstetrics & Gynecology; Referring Provider Obstetrics & Gynecology; Visit Provider Obstetrics & Gynecology
PROC: 10D00Z1 Extraction of Products of Conception, Low, Open Approach (ICD-10-PCS; CPT 59514; principal; 2023-05-05 07:00)
DX: O34.212 Maternal care for vertical scar from previous cesarean delivery (principal); O60.14X0 Preterm labor third trimester with preterm delivery third trimester, not applicable or unspecified; O69.2XX0 Labor and delivery complicated by other cord entanglement, with compression, not applicable or unspecified; Z37.0 Single live birth; Z3A.36 36 weeks gestation of pregnancy
CPT/HCPCS: 59025; 59050; 82962; 85025; 85027; 85461; 86780; 86850; 86870; 86900; 86901; 90384; 99221; J7120; A4216; G0378; J2405; J2790; J2791